=== PATIENT | female | born 1990 | race Caucasian/White ===

== ENCOUNTER 2023-09-26 20:16 | Emergency (ER) | payer SELFPAY | END 2023-09-26 22:00 | disposition left against medical advice (07) | LOC: MW.ED 20:16 | DX: Z53.21 Procedure and treatment not carried out due to patient leaving prior to being seen by health care provider (principal) ==

== ENCOUNTER 2023-11-01 13:20 | Emergency (ER) | payer OTHER ==
[2023-11-01] MEDS: Tetracaine HCl/PF 0.5% 4 ML Bottle EYEBOTH ONE (14:48)
== END 2023-11-01 14:50 | disposition home or self-care (01) ==
LOC: MW.ED 13:20
DX: H10.9 Unspecified conjunctivitis (principal); Z75.8 Other problems related to medical facilities and other health care
CPT/HCPCS: 99282; J3490